=== PATIENT | female | born 1945 | race Caucasian/White ===

== ENCOUNTER 2021-01-28 08:38 | Emergency (ER) | payer MEDICARE ==
[~2021-01-28] VITALS: Ht 167.6 cm; Wt 59.0 kg
[~2021-01-28 08:38] MED LIST: ZOFRAN ODT4 MG PO
[2021-01-28 09:04] LABS: URINE BILIRUBIN NEGATIVE (Negative); URINE BLOOD NEGATIVE (Negative); URINE CLARITY CLEAR; URINE COLOR YELLOW; URINE GLUCOSE-RANDOM NEGATIVE (Negative); URINE KETONES NEGATIVE (Negative); URINE LEUKOCYTES-REFLEX 1+ (Negative); URINE NITRITE-REFLEX NEGATIVE (Negative); URINE PROTEIN NEGATIVE (Negative); URINE UROBILINOGEN 0.2 E.U./dl (0.2-1.0)
[2021-01-28 09:14] LABS: ABSOLUTE EOSINOPHILS 0.2 thou/uL (0.0-0.7); ABSOLUTE LYMPHOCYTES 1.3 thou/uL (0.8-5.3); ABSOLUTE MONOCYTES 0.3 thou/uL (0.0-1.2); BASOPHILS 0.7 %; EOSINOPHILS 4.3 %; HEMOGLOBIN 13.1 gm/dL (12.0-15.0); LYMPHOCYTES 26.4 %; MCH 28.6 pg (26.0-34.0); MCHC 33.7 g/dL (28.0-37.0); MCV 85.1 fL (80.0-100.0); MONOCYTES 6.5 %; MPV 8.3 fl. (7.2-11.1); NUCLEATED RBCS 0 /100WBC; PLATELET COUNT* 220 thou/uL (150-400); POLYS 62.1 %; RBC 4.58 mil/uL (4.20-5.00); RDW-CV 14.1 % (10.5-14.5); WBC 4.9 thou/uL (4.0-11.0)
[2021-01-28 09:15] LABS: BACTERIA-REFLEX 1-9 Few /HPF (None Seen); CASTS None Seen /LPF (None Seen); CRYSTALS None Seen /LPF (None Seen); SQUAMOUS 0-3 Few /LPF (0-3); URINE RBC 0-2 Rare /HPF (0-2); URINE WBC-REFLEX 0-5 Rare /HPF (0-5)
[2021-01-28 09:33] LABS: CALCIUM 8.6 mg/dL (8.5-10.1); POTASSIUM 3.9 mmol/L (3.5-5.1)
[2021-01-28 09:36] LABS: ALBUMIN 3.6 g/dL (3.4-5.0); TOTAL BILIRUBIN 0.4 mg/dL (<0.1-1.0); TOTAL PROTEIN 7.3 g/dL (6.4-8.2)
[2021-01-28] MEDS ORDERED: HYDROCODON-ACE1 EAC7 PO (11:00)
[2021-01-28] MEDS ORDERED: PYRIDIUM200 MG PO (11:00)
[2021-01-28] MEDS ORDERED: BACTRIM DS TAB1 EAC1 PO (11:00)
[2021-01-28 11:13] VITALS: BP 160/80
--- NOTE | 2021-01-29 11:43 | EKG ---
[place] [address] ELECTROCARDIOGRAM REPORT Name: WILMAN REBOLLEDO Room: [facility]#: [id number] Admission: 01/28/21 Attend Phys: Discharge: 01/28/21 Date of : 41 Date of Service: 01/28/21899 Report #: [id number] THIS REPORT FOR: //name// [facility] ED Test Date: 2021-01-28 Test Time: 09:00:58 Pat Name: WILMAN REBOLLEDO Department: Room: Gender: F Radio Operator: CD : 1945 Requested By: Don Harry Order Number: [id number] MD: Carrillo Marroquin Measurements Intervals [place] Rate: 55 P: 61 IN: 163 QRS: 12 QRSD: 94 T: 44 QT: 442 QTc: 423 Interpretive Statements Sinus rhythm Probable left atrial enlargement Compared to ECG 11/17/2014 11:03:22 No significant changes Electronically Signed On 01-29-2021 11:42:53 CDT by Carrillo Marroquin [email or web address] <ELECTRONICALLY SIGNED> By: Carrillo Marroquin MD, [facility] 01/29/21 1142 9 09 Carrillo Marroquin MD, [facility] /EPI
== END 2021-01-28 11:15 | disposition home or self-care (01) ==
LOC: M.ERS 08:38
PROVIDERS: Emergency Medicine Emergency Medical Services
DX: N39.0 Urinary tract infection, site not specified (principal); Z90.89 Acquired absence of other organs